=== PATIENT | female | born 1960 | race African-American/Black ===

== ENCOUNTER 2021-07-26 14:39 | Emergency (ER) | payer MEDICAID ==
[~2021-07-26] VITALS: Ht 157.5 cm; Wt 82.0 kg
[2021-07-26] MEDS ORDERED: GLUCAGON,HUMAN RECOMBINANT 1MG/VIAL IM ONE (16:30)
[2021-07-26] MEDS ORDERED: IBUP-2028 MT (18:24)
[2021-07-26 18:44] VITALS: BP 151/87
== END 2021-07-26 18:44 | disposition home or self-care (01) ==
LOC: ER 14:39
DX: T17.228A Food in pharynx causing other injury, initial encounter (principal); M79.89 Other specified soft tissue disorders; I10 Essential (primary) hypertension; G40.909 Epilepsy, unspecified, not intractable, without status epilepticus; M81.0 Age-related osteoporosis without current pathological fracture; X58.XXXA Exposure to other specified factors, initial encounter; Y93.89 Activity, other specified; Y92.9 Unspecified place or not applicable; Z98.890 Other specified postprocedural states
CPT/HCPCS: 70360; 71046; 73130; 93005; 96372; 99284; J1610; Z7610

== ENCOUNTER 2021-12-17 17:20 | Emergency (ER) | payer MEDICAID ==
[~2021-12-17] VITALS: Ht 157.5 cm; Wt 72.0 kg
[~2021-12-17 17:20] MED LIST: IBUP-2028 MT
[2021-12-17 23:35] LABS: BASOPHILS % 0.5 % (0.0-2.0); EOSINOPHILS % 0.6 % (0.0-5.0); HEMATOCRIT. 46.1 % (36.0-48.0); HEMOGLOBIN. 15.5 g/dL (12.0-16.0); LYMPHOCYTES % 57.1 % (20.0-50.0); MEAN CORPUSCULAR HEMOGLOBIN 29.4 pg (28.0-32.0); MEAN CORPUSCULAR VOLUME 87.5 fL (81.0-99.0); MEAN PLATELET VOLUME 10.4 fl (7.4-10.4); MONOCYTES % 6.1 % (2.0-8.0); NEUTROPHILS % 35.7 % (40.0-76.0); PLATELET 286 x1000/uL (130-400); RED BLOOD CELL COUNT 5.27 mill/uL (4.2-5.4); RED CELL DISTRIBUTION WIDTH 14.9 % (11.6-14.6)
[2021-12-17 23:46] LABS: CHLORIDE 99 mEq/L (98-107)
[2021-12-18 01:11] VITALS: BP 150/75
[2021-12-18] MEDS ORDERED: BENZ100C86 MT (02:07)
== END 2021-12-18 02:30 | disposition home or self-care (01) ==
LOC: ER 17:20
DX: M79.10 Myalgia, unspecified site (principal); I10 Essential (primary) hypertension; G40.909 Epilepsy, unspecified, not intractable, without status epilepticus; Z98.1 Arthrodesis status; Z88.0 Allergy status to penicillin
CPT/HCPCS: 36415; 71045; 80053; 83880; 85025; 99285

== ENCOUNTER 2024-02-24 15:23 | Inpatient (IN) | payer MEDICAID ==
[~2024-02-24] VITALS: Ht 157.5 cm; Wt 63.5 kg
[~2024-02-24 15:23] MED LIST changes: +BENZ100C86 MT
[2024-02-24 18:31] LABS: BASOPHILS % 0.4 % (0.0-2.0); DIFFERENTIAL COMMENT 0; EOSINOPHILS % 0.8 % (0.0-5.0); HEMATOCRIT. 42.7 % (36.0-48.0); HEMOGLOBIN. 14.3 g/dL (12.0-16.0); LYMPHOCYTES % 45.9 % (20.0-50.0); MEAN CORPUSCULAR HEMOGLOBIN 29.6 pg (28.0-32.0); MEAN CORPUSCULAR HGB CONC 33.5 g/dL (31.0-37.0); MEAN CORPUSCULAR VOLUME 88.4 fL (81.0-99.0); MEAN PLATELET VOLUME 12.1 fl (7.4-10.4); MONOCYTES % 7.4 % (2.0-8.0); NEUTROPHILS % 45.5 % (40.0-76.0); PLATELET 147 x1000/uL (130-400); RED BLOOD CELL COUNT 4.83 mill/uL (4.2-5.4); RED CELL DISTRIBUTION WIDTH 14.4 % (11.6-14.6); WHITE BLOOD COUNT 5.8 x1000/uL (4.5-11.0)
[2024-02-24 18:38] LABS: CHLORIDE 107 mEq/L (98-107); POTASSIUM 3.7 mEq/L (3.5-5.1); SODIUM 140 mEq/L (136-145)
[2024-02-24 18:39] LABS: CALCIUM 10.4 mg/dL (8.7-10.4); CARBON DIOXIDE 28 mEq/L (21-32)
[2024-02-24 18:44] LABS: CREATININE 0.8 mg/dL (0.6-1.0); GLUCOSE 93 mg/dL (70-105); UREA NITROGEN BLOOD 10 mg/dL (9-23)
[2024-02-24 18:45] LABS: ALANINE AMINOTRANSFERASE 57 IU/L (10-49); ASPARTATE AMINOTRANSFERASE 39 IU/L (<34)
[2024-02-24 18:46] LABS: ALBUMIN 4.9 g/dL (3.2-4.8); BILIRUBIN TOTAL 0.4 mg/dL (0.1-1.0); PROTEIN TOTAL 8.6 g/dL (6.0-8.3)
[2024-02-24] MEDS: MORPHINE SULFATE 4 MG/ML INJ (FOR IV/IM USE) IV ONE (21:20)
[2024-02-24] MEDS: ACETAMINOPHEN 325MG TABLET PO ONE (21:21)
[2024-02-25] VITALS (7 sets, daily range): BP systolic 116–152; BP diastolic 63–80; PULSE 51–78; RESP 16–20; TEMP 35.78064–37.00296; O2SAT 98–100
[2024-02-25] MEDS ORDERED: CLONIDINE 0.1MG TABLET PO PRN (03:15)
[2024-02-25] MEDS ORDERED: NALOXONE HCL 0.4MG/ML VIAL IV PRN (03:30)
[2024-02-25] MEDS: ACETAMINOPHEN 325MG TABLET PO PRN (06:45)
[2024-02-25] MEDS: ENOXAPARIN 40MG/0.4ML SYR SUBCUT SCH (08:25)
[2024-02-25] MEDS: MORPHINE SULFATE 4 MG/ML INJ (FOR IV/IM USE) IV PRN (08:30)
[2024-02-25 09:14] LABS: BASOPHILS % 0.4 % (0.0-2.0); DIFFERENTIAL COMMENT 0; EOSINOPHILS % 1.4 % (0.0-5.0); HEMOGLOBIN. 13.8 g/dL (12.0-16.0); LYMPHOCYTES % 51.7 % (20.0-50.0); MEAN CORPUSCULAR HEMOGLOBIN 28.8 pg (28.0-32.0); MEAN CORPUSCULAR HGB CONC 32.2 g/dL (31.0-37.0); MEAN CORPUSCULAR VOLUME 89.5 fL (81.0-99.0); MEAN PLATELET VOLUME 12.3 fl (7.4-10.4); MONOCYTES % 10.5 % (2.0-8.0); PLATELET 135 x1000/uL (130-400); RED CELL DISTRIBUTION WIDTH 14.5 % (11.6-14.6); WHITE BLOOD COUNT 4.2 x1000/uL (4.5-11.0)
[2024-02-25 09:21] LABS: CARBON DIOXIDE 29 mEq/L (21-32); CHLORIDE 109 mEq/L (98-107); POTASSIUM 3.9 mEq/L (3.5-5.1); SODIUM 141 mEq/L (136-145)
[2024-02-25 09:26] LABS: CREATININE 0.7 mg/dL (0.6-1.0)
[2024-02-25 09:27] LABS: GLUCOSE 89 mg/dL (70-105); UREA NITROGEN BLOOD 14 mg/dL (9-23)
[2024-02-25] MEDS ORDERED: CLOP75TA33 PO (14:37)
[2024-02-25] MEDS ORDERED: ESCI-7 PO (14:37)
[2024-02-25] MEDS ORDERED: ATOR40TA70 PO (14:37)
[2024-02-25] MEDS ORDERED: LEVE500T19 PO (14:37)
[2024-02-25] MEDS ORDERED: CLON2TAB11 PO (14:37)
[2024-02-25] MEDS ORDERED: ASPI-1160 PO (14:37)
[2024-02-25] MEDS ORDERED: AMLO5TAB88 PO (14:37)
[2024-02-25] MEDS ORDERED: LEVETIRACETAM 500MG TABLET PO SCH (14:45)
[2024-02-25] MEDS: ASPIRIN 81MG TABLET PO SCH (15:16)
[2024-02-25] MEDS: CLOPIDOGREL 75MG TABLET PO SCH (15:17)
[2024-02-25] MEDS: ATORVASTATIN CALCIUM 40MG TABLET PO SCH (15:17)
[2024-02-25] MEDS: AMLODIPINE 5MG TABLET PO SCH (15:17)
[2024-02-25] MEDS: GABAPENTIN 100MG CAPSULE PO SCH (22:30)
[2024-02-25] MEDS: CLONAZEPAM 1MG TABLET PO SCH (22:36)
[2024-02-25] MEDS: LEVETIRACETAM 500MG PREMIX 100 ML IV SCH (22:53)
[2024-02-26] VITALS: BP 111/67; PULSE 78; RESP 19; TEMP 36.3918; O2SAT 99
[2024-02-26 04:00] VITALS: BP 107/54; PULSE 69; RESP 18; TEMP 36.33624; O2SAT 97
[2024-02-26] MEDS: CITALOPRAM HYDROBROMIDE 10MG TABLET PO SCH (09:25)
[2024-02-26 12:00] VITALS: BP 108/61; PULSE 54; RESP 19; TEMP 36.05844; O2SAT 100
[2024-02-26] MEDS ORDERED: GABA-529 PO (15:33)
[2024-02-26 16:00] VITALS: BP 112/67; PULSE 57; RESP 18; TEMP 35.94732; O2SAT 98
[2024-02-26 20:00] VITALS: BP 110/55; PULSE 63; RESP 18; TEMP 36.33624; O2SAT 100
[2024-02-26] MEDS: ATORVASTATIN CALCIUM 40MG TABLET PO SCH (22:02)
[2024-02-27] VITALS: BP 115/61; PULSE 70; RESP 19; TEMP 36.72516; O2SAT 98
[2024-02-27 04:00] VITALS: BP 127/70; PULSE 65; RESP 20; TEMP 36.3918; O2SAT 99
[2024-02-27 08:00] VITALS: BP 106/67; PULSE 53; RESP 18; TEMP 36.114; O2SAT 100
[2024-02-27 12:00] VITALS: BP 111/55; PULSE 63; RESP 19; TEMP 36.50292; O2SAT 99
[2024-02-27] MEDS: COLCHICINE 0.6MG TABLET PO NR ×2 (14:21→20:36)
[2024-02-27 16:00] VITALS: BP 107/60; PULSE 69; RESP 18; TEMP 36.72516; O2SAT 100
[2024-02-27 20:00] VITALS: BP 112/56; PULSE 72; RESP 18; TEMP 36.61404; O2SAT 98
[2024-02-27] MEDS: INDOMETHACIN 25MG CAPSULE PO SCH (20:35)
[2024-02-28] VITALS: BP 101/52; PULSE 60; RESP 18; TEMP 36.61404; O2SAT 97
[2024-02-28 04:00] VITALS: BP 103/67; PULSE 56; RESP 18; TEMP 35.89176; O2SAT 97
[2024-02-28 08:00] VITALS: BP 99/50; PULSE 52; RESP 18; TEMP 36.55848; O2SAT 98
[2024-02-28] MEDS: HYDROCODONE/ACETAMINOPHEN 5/325MG TABLET PO PRN (11:26)
[2024-02-28] MEDS: LEVETIRACETAM 500MG TABLET PO SCH (11:26)
[2024-02-28 12:00] VITALS: BP 103/51; PULSE 68; RESP 19; TEMP 36.50292; O2SAT 96
[2024-02-28 16:00] VITALS: BP 104/53; PULSE 67; RESP 17; TEMP 36.3918; O2SAT 98
[2024-02-28 20:00] VITALS: BP 102/58; PULSE 60; RESP 18; TEMP 36.55848; O2SAT 100
[2024-02-28] MEDS: TRAMADOL 50MG TABLET PO PRN (22:08)
[2024-02-29] VITALS: BP 127/53; PULSE 62; RESP 20; TEMP 36.61404; O2SAT 100
[2024-02-29 04:00] VITALS: BP 135/71; PULSE 55; RESP 19; TEMP 36.89184; O2SAT 97
[2024-02-29 12:00] VITALS: BP 107/55; PULSE 65; RESP 18; TEMP 36.00288; O2SAT 98
[2024-02-29 15:34] VITALS: BP 110/58; PULSE 65; TEMP 96.8; O2SAT 95
[2024-02-29 16:00] VITALS: BP 119/57; PULSE 71; RESP 18; TEMP 36.3918; TEMP 36.39180; O2SAT 98
[2024-02-29 18:43] VITALS: BP 149/79; PULSE 53; RESP 18
== END 2024-02-29 18:45 | disposition home health service (06) | DRG 48 ==
LOC: ER 15:23 → 6EST 21:01 → EDBEDREQ 21:04
PROVIDERS: ADMIT Internal Medicine; ATTEND Internal Medicine
DX: G62.9 Polyneuropathy, unspecified (principal); I69.951 Hemiplegia and hemiparesis following unspecified cerebrovascular disease affecting right dominant side; E78.5 Hyperlipidemia, unspecified; I10 Essential (primary) hypertension; F32.A Depression, unspecified; F41.9 Anxiety disorder, unspecified; Z87.891 Personal history of nicotine dependence; Z88.0 Allergy status to penicillin; Z88.8 Allergy status to other drugs, medicaments and biological substances; Z79.899 Other long term (current) drug therapy
CPT/HCPCS: 36415; 70551; 73610; 80048; 80053; 80061; 83036; 83880; 84550; 85025; 85651; 93970; 97110; 97162; 97530; 99285; C1893; J1650; J1953; J2270